=== PATIENT | female | born 1985 | race Caucasian/White ===

== ENCOUNTER 2016-12-16 14:59 | Emergency (ER) | payer SELFPAY ==
[2016-12-16 15:32] VITALS: BP 142/90; PULSE 110; TEMP 98.4; BMI 23.0
[2016-12-16] MEDS ORDERED: AZITHROMYCIN 250 MG TAB PO ONE (15:36)
[2016-12-16] MEDS ORDERED: CEFTRIAXONE 250 MG VIAL IM ONE (15:36)
--- NOTE | 2016-12-16 15:58 | EDPRACDOC ---
- General Information Chief Complaint: Female Urogenital Problems Stated Complaint: STD TEST Time Seen by Provider: 12/16/16 15:43 Information Source: Patient Mode Of Arrival: Car Home Medications: Home Medications Trazodone HCl [Desyrel] 100 mg PO QHS 05/31/15 Hydroxyzine Pamoate [Vistaril] 100 mg PO TID 06/16/15 Hydrocodone Bit/Acetaminophen [Hydrocodon-Acetaminophen 5-325] 1 tab PO Q6 PRN # 15 tab 03/15/16 Vilazodone Hydrochloride [Viibryd] 10 mg PO DAILY 03/15/16 Cephalexin Monohydrate [Keflex] 500 mg PO Q6H #28 cap 10/03/16 Ibuprofen 600 mg PO TID #20 tablet 10/03/16 Sulfamethoxazole/Trimethoprim [Bactrim Ds Tablet] 1 tab PO BID #14 tab 10/03/16 Albuterol Sulfate MDI [Proventil HFA] 1 - 2 puff INH Q4-6H PRN #1 inhaler Allergies/Adverse Reactions: Allergies Allergy/AdvReac Type Severity Reaction Status Date / Time bismuth subsalicylate Allergy Severe VOMITING Verified 06/20/15 20:49 [From Pepto-Bismol] - History of Present Illness HPI: Pt states her boyfriend called her this morning and was told he had gonorrhea and she needed for be treated. Denies abd pain, n/v, vaginal discharge, rash. Onset: 3 days Urinary Pain Location: Reports: None Symptom Onset: Reports: After Sexual Contact Pain Severity: None Pain Quality: Denies: Aching, N, Burning, Colicky, Cramping, Sharp, Stabbing, Knife-like, O History of: Reports: STD : No Oral Intake: Normal Urinary Output: Normal Associated Signs and Symptoms: Reports: None Other History: Pt also request Albuterol refill due to asthma ED Past Medical History - History Reviewed Yes Nurses notes reviewed and agree except as marked - Patient Medical History GI/ History: Denies: Urinary Tract Infection Psychological History: Reports: Substance Use Disorder (Cocaine, Meth, THC, ETOH ). Denies: Depression Additional Past Medical History: Ovarian Cyst Surgical History: Reports: Other (D&C TIMES 2) - Social Medical History Smoking Status: Heavy tobacco smoker (5 or more cigarettes/day or daily pipe/ cigar) Social History: Reports: Substance Use Disorder (Cocaine, Meth, THC, ETOH) ETOH: None EDM Review of Systems - Review of Systems Constitutional: No Symptoms Reported. negative: Fever, Chills, Weakness, Fatigue, Loss of Appetite Respiratory: No Symptoms Reported. negative: Cough, Brassy Cough, Barky Cough, Shortness of Breath, Wheezing, Hemoptysis Cardiovascular: No Symptoms Reported. negative: Chest Pain, Palpitations, Syncope, Edema, Orthopnea, PND, Skin Mottling, Cyanosis Gastrointestinal: No Symptoms Reported. negative: Pain, Constipation, Nausea, Vomiting, Diarrhea, Melena, Formula Intolerance Genitourinary: No Symptoms Reported. negative: Dysuria, Hematuria, Frequency, Discharge, Bleeding, Testicular Pain, Neurological: No Symptoms Reported. negative: Headache, Dizziness, Seizure, Numbness, Weakness, Speech Difficulty, Gait Difficulty Musculoskeletal: No Symptoms Reported. negative: Neck, Chestwall, Ribs, Back, Shoulder, Arm, Elbow, Forearm, Wrist, Hand, Pelvis, Hip, Femur, Knee, Leg, Ankle , Foot Integumentary: No Symptoms Reported. negative: Itching, Rash, Bruising, Wound Allergic/Immunologic: No Symptoms Reported. negative: Hives, Itching Hematologic: No Symptoms Reported. negative: Lymphadenopathy, Easy Bruising, Easy Bleeding Psychiatric: No Symptoms Reported. negative: Anxiety, Depression, Hallucinations, Insomnia, Suicidal - Physical Exam Constitutional: Alert Oriented to: Time, Person, Place Last recorded Vital Signs: Last Vital Signs Temp 98.4 F 12/16/16 15:29 Pulse 110 12/16/16 15:29 Resp 18 12/16/16 15:29 BP 142/90 12/16/16 15:29 Pulse Ox 100 12/16/16 15:29 Oxygen Pulse Oxygen Saturation 100 O2 Device Room Air Oxygen Flow Rate Fraction of Inspired Oxygen ( FIO2) - HEENT Head: Normal ( normocephalic) Eye Exam: Normal (PERRL, EOMI, Sclera white) - Respiratory/Cardiovascular Respiratory: Normal - CTA (BBS clear to auscultation without adventitious sounds ) Cardiovascular: Normal (RRR without murmur, gallop or rub) - GI Auscultation: Normal Palpation: Normal (Soft,No rebound or guarding, non distended) Tenderness: Non tender - Musculoskeletal Back: Normal (Non-Tender) Extremities: Normal (Normal tone, Pulses 2+ No cyanosis or edema, FROM) - Integumentary Skin: Normal, Warm, Dry Lymphatics: Normal (no adenopathy) - Neurologic Memory Impaired: Normal Motor Function: Normal (Normal tone, Pulses 2+ No cyanosis or edema, FROM) Mood Description: Normal Perception: Normal - Differential Diagnosis Other (gonnorhea exposure), UTI, Vaginitis - Results 12/16/16 16:17 Laboratory Results - last 24 hr 12/16/16 12/16/16 15:50 15:50 Urine Color Yellow Urine Clarity Clear Urine pH 5.0 Ur Specific [place] 1.035 Urine Protein 2+ H Urine Glucose (UA) Neg Urine Ketones Neg Urine Occult Blood Neg Urine Nitrite Neg Urine Bilirubin Neg Urine Urobilinogen 0.2 Ur Leukocyte Esterase Trace Urine RBC 5-10 H Urine WBC 10-20 H Ur Epithelial Cells 4+ Amorphous Sediment Occ Hyaline Casts 2-5 H Urine Mucus Sm amt Urine Test Neg Decision Time to Discharge: 16:17 - Departure Disposition: Home Condition: Good Final Diagnosis: Exposure to gonorrhea, Medication refill Instructions: Gonorrhea (ED) Education/Counseling Given To: Patient Education/Counseling Given Regarding: Diagnosis, Treatment, Follow Up Referrals: None,No Provider [Primary Care Provider] - One Week Jesus Manuel Luo MD [Staff Physician] - One Week Morgan Calzada MD [Staff Physician] - One Week Prescriptions: Albuterol Sulfate MDI [Proventil HFA] 1 - 2 puff INH Q4-6H PRN #1 inhaler PRN Reason: Shortness Of Breath Additional Instructions: Treat all sexual partners. Return for worse or different symptoms.
[2016-12-16 16:08] LABS: AMORPHOUS OCC
[2016-12-16 16:09] LABS: LEUKOCYTES/URINE TRACE (NEGATIVE); NITRITE/URINE NEG (NEGATIVE); URINE OCCULT BLOOD NEG (NEG/TRACE)
== END 2016-12-16 16:19 | disposition home or self-care (01) ==
LOC: ED 14:59 → EDMC 16:19
DX: Z20.2 Contact with and (suspected) exposure to infections with a predominantly sexual mode of transmission (principal)
CPT/HCPCS: 81001; 81025; 96372; 99282; J0696; J3490